=== PATIENT | male | born 1965 | race Hispanic/Latino ===

== ENCOUNTER → 2024-04-11 | Outpatient (CLI) | payer BC ==
[~2024-04-11] MED LIST: PERFLUTREN PROTEIN-A MICROSPHR 0.22 MG/ML VIAL IV ONE
== END | disposition home or self-care (01) ==
LOC: RAH 11:21
PROVIDERS: ATTEND Internal Medicine Cardiovascular Disease
DX: I25.810 Atherosclerosis of coronary artery bypass graft(s) without angina pectoris (principal); I10 Essential (primary) hypertension; E78.5 Hyperlipidemia, unspecified; R01.1 Cardiac murmur, unspecified
CPT/HCPCS: C8929; Q9956